=== PATIENT | female | born 1960 | race Two or more races ===

== ENCOUNTER 2020-12-05 15:05 | Emergency (ER) | payer OTHER ==
[~2020-12-05] VITALS: Ht 165.1 cm; Wt 68.0 kg
[2020-12-05] MEDS ORDERED: SODIUM CHLORIDE 0.9% 1,000 ML IV ONE (15:45)
[2020-12-05 16:05] LABS: Basophils # (auto) 0 10 ^3/uL (0-0.2); Basophils % (auto) 0.4 % (0.0-2.0); Eosinophils # (auto) 0.1 10 ^3/uL (0-0.8); Eosinophils % (auto) 0.5 % (0.0-7.0); Hematocrit 40.2 % (36.0-46.0); Hemoglobin 13.9 g/dL (12.2-16.2); Lymphocytes % (auto) 7.5 % (10.0-50.0); Mean Corpuscular Hemoglobin 32.3 pg (28.0-32.0); Mean Corpuscular Hgb Conc. 34.6 g/dL (32.0-36.0); Mean Corpuscular Volume 93.3 fL (80.0-100.0); Monocytes # (auto) 0.7 10 ^3/uL (0-1.3); Monocytes % (auto) 5.5 % (0.0-12.0); Neutrophils % (auto) 86.1 % (37.0-80.0); Nucleated Red Blood Cells % 0.1 %; Red Blood Cells 4.31 10^6/uL (4.0-5.20); Red Cell Distribution Width 13.1 % (11.8-14.3); White Blood Cell 12.8 10^3/uL (4.4-10.8)
[2020-12-05 16:14] LABS: Albumin 3.1 g/dL (3.4-5.0); Magnesium 2.4 mg/dL (1.6-2.6); Potassium 3.8 mmol/L (3.5-5.1)
[2020-12-05 16:18] LABS: BUN/Creatinine Ratio 20.4; Bilirubin, Total 1.4 mg/dL (0.2-1.0); Total Protein 7.6 g/dL (6.4-8.2)
[2020-12-05 19:25] LABS: Urine Bacteria NONE SEEN /hpf (None Seen); Urine Blood 2+ /uL (Negative); Urine Specific Gravity 1.016 (1.001-1.035); Urine WBC 39 /hpf (0 - 5)
[2020-12-05 19:45] LABS: Alcohol, Urine < 3.0 mg/dL (0-10); Amphetamine Screen, Urine NEGATIVE (NEGATIVE); Barbiturate Scree,Urine NEGATIVE (NEGATIVE); Benzodiazephine Screen, Urine NEGATIVE (NEGATIVE); Cannabinoid Screen, Urine NEGATIVE (NEGATIVE); Cocaine Screen, Urine NEGATIVE (NEGATIVE); Opiate Scree,Urine NEGATIVE (NEGATIVE); Phencyclidine Screen, Urine NEGATIVE (NEGATIVE)
[2020-12-05] MEDS ORDERED: cefTRIAXone 1GM/50ML D5W 50 ML IV ONE (20:00)
[2020-12-05] MEDS ORDERED: ACETAMINOPHEN 500 MG TAB PO ONE (20:00)
[2020-12-05 20:56] LABS: INR 0.96 (0.9-1.15); Partial Thromboplastin Time 30.2 sec (23.0-31.2)
[2020-12-05] MEDS ORDERED: IOHEXOL 350 MG/ML 100ML IJ ONE ×2 (21:39→22:19)
[2020-12-06] VITALS: BP 122/82
== END 2020-12-06 00:51 | disposition home or self-care (01) ==
LOC: ER 15:05
DX: I10 Essential (primary) hypertension (principal); R74.8 Abnormal levels of other serum enzymes; R06.00 Dyspnea, unspecified; Z90.710 Acquired absence of both cervix and uterus; Z20.822 Contact with and (suspected) exposure to COVID-19
CPT/HCPCS: 36415; 71045; 71275; 76705; 80053; 80307; 80320; 81001; 83605; 83735; 83880; 84443; 84484; 85025; 85379; 85610; 85730; 87426; 93005; 96361; 96365; 99285; C9803; J0696; J7030; Q9967; U0003

== ENCOUNTER 2023-11-30 01:23 | Emergency (ER) | payer BC ==
[~2023-11-30] VITALS: Ht 165.1 cm; Wt 71.4 kg
[2023-11-30 02:23] LABS: Basophils # (auto) 0 10 ^3/uL (0-0.2); Basophils % (auto) 0.3 % (0.0-2.0); Eosinophils # (auto) 0.1 10 ^3/uL (0-0.8); Eosinophils % (auto) 0.6 % (0.0-7.0); Hemoglobin 13.9 g/dL (12.2-16.2); Lymphocytes # (auto) 1.2 10 ^3/uL (0.4-5.4); Lymphocytes % (auto) 9.9 % (10.0-50.0); Mean Corpuscular Hemoglobin 31.2 pg (28.0-32.0); Mean Corpuscular Volume 94.3 fL (80.0-100.0); Monocytes # (auto) 0.6 10 ^3/uL (0-1.3); Monocytes % (auto) 5.1 % (0.0-12.0); Neutrophils # (auto) 10.3 10 ^3/uL (1.6-8.6); Neutrophils % (auto) 84.1 % (37.0-80.0); Red Blood Cells 4.45 10^6/uL (4.0-5.20); White Blood Cell 12.3 10^3/uL (4.4-10.8)
[2023-11-30 02:26] LABS: Chloride 101 mmol/L (98-107); Potassium 3.6 mmol/L (3.5-5.1); Sodium 133 mmol/L (136-145)
[2023-11-30 02:27] LABS: Anion Gap 10 (5-15); Calcium 9.5 mg/dL (8.7-10.4); Carbon Dioxide 22 mmol/L (20-30)
[2023-11-30 02:32] LABS: BUN/Creatinine Ratio 18.1 (10.0-20.0); Blood Urea Nitrogen 17 mg/dL (9-23); Glucose 102 mg/dL (74-106)
[2023-11-30 02:34] LABS: Urine Bacteria FEW /hpf (None Seen); Urine Blood 2+ /uL (Negative); Urine Clarity Clear (Clear); Urine Color Colorless (Yellow); Urine Protein, UAD Negative (Negative); Urine Specific Gravity 1.003 (1.001-1.035); Urine Urobilinogen Normal (Negative); Urine WBC 1 /hpf (0 - 5); Urine pH 5.5 (5.0-8.0)
[2023-11-30] MEDS ORDERED: TAMS-35 PO (06:44)
[2023-11-30 07:51] VITALS: BP 166/108; PULSE 80; RESP 18; TEMP 97.2; O2SAT 98
== END 2023-11-30 07:51 | disposition home or self-care (01) ==
LOC: ER 01:23
DX: R33.9 Retention of urine, unspecified (principal); R10.9 Unspecified abdominal pain; I10 Essential (primary) hypertension; Z98.890 Other specified postprocedural states; Z79.899 Other long term (current) drug therapy
CPT/HCPCS: 36415; 51702; 74176; 80048; 81001; 85025

== ENCOUNTER 2025-09-09 15:59 | Inpatient (IN) | payer BC, MEDICARE ==
[~2025-09-09] VITALS: Ht 165.1 cm; Wt 74.6 kg
[~2025-09-09 15:59] MED LIST: TAMS-35 PO
--- NOTE | 2025-09-09 16:15 | ECG ---
[facility] Test Date: 2025-09-09 Test Time: 16:09:32 Pat Name: MIKEY ABARCA Department: ED Room: Gender: F Category Planner: maren : 1960 Requested By: INDRA RUSSELL Order Number: [id number] Reading MD: Measurements Intervals [place] Rate: 75 P: 63 AR: 167 QRS: 49 QRSD: 100 T: 29 QT: 405 QTc: 453 Interpretive Statements Sinus rhythm Abnormal R-wave progression, early transition Baseline wander in lead(s) II,III,aVF Please click the below link to view image of tracing.
[2025-09-09 17:08] LABS: Urine Protein, UAD Negative (Negative)
--- NOTE | 2025-09-09 17:19 | ED.PDOC ---
HPI Comments 65 y.o female with a chief complaint of substernal chest pain and lightheadedness that started today. Patient reports that pain has been constant, nonradiating, sharp, and has no alleviating factors. Patient states that she has had this pain many years ago however we self resolved and has not seek medical attention for this or has she had a cardiac evaluation done. Patient has a history of hypotension. She denies any substance, tobacco, or alcohol use Chief Complaint: Chest Pain Time Seen by MD: 17:00 Primary Care Provider: ALEXANDRO Osorio Notes: Nurses Notes, Medications, Allergies Allergies: Coded Allergies: NO KNOWN ALLERGIES (Unverified , 05/17/24) Home Meds Active Scripts Tamsulosin Hcl (Flomax) 0.4 Mg Cap, 1 CAP PO DAILY, #30 CAP 11 Refills Prov:LATISHA ZULETA MD 11/30/23 Information Source: Patient Mode of Arrival: Ambulatory Severity: Moderate Timing: Hours Duration: Since onset Location: Substernal Radiation: No Radiation Quality: Sharp Onset: At Rest Cardiac Risk Factors: HTN PE Risk Factors: None History of: Similar pain in past Modifying Factors: Nothing Associated Signs and Symptoms: Other Past Medical History PAST MEDICAL HISTORY: HTN Surgical History: Cholecystectomy, Hysterectomy HEADING UP MACHINE OPERATOR History: No Pertinent HEADING UP MACHINE OPERATOR History Family History Family History: Family hx of HTN Social History Smoker: Non-Smoker Alcohol: Occasionally Drugs: Denies Drug Use Lives In: Home Constitutional: denies: chills, diaphoresis, fatigue, fever, malaise, sweats, w eakness, others EENTM: denies: blurred vision, double vision, ear bleeding, ear discharge, ear drainage, ear pain, ear ringing, eye pain, eye redness, hearing loss, mouth pain, mouth swelling, nasal discharge, nose bleeding, nose congestion, nose pain, photophobia, tearing, throat pain, throat swelling, voice changes, others Respiratory: denies: cough, hemoptysis, orthopnea, SOB at rest, shortness of breath, SOB with excertion, stridor, wheezing, others Cardiovascular: reports: chest pain, lightheadedness; denies: dizzy spells, diaphoresis, Dyspnea on exertion, edema, irregular heart beat, left arm pain, palpitations, PND, syncope, others Gastrointestinal: denies: abdomen distended, abdominal pain, blood streaked bowels, constipated, diarrhea, dysphagia, difficulty swallowing, hematemesis, melena, nausea, poor appetite, poor fluid intake, rectal bleeding, rectal pain, vomiting, others Genitourinary: denies: abnormal vagina bleeding, burning, dyspareunia, dysuria, flank pain, frequency, hematuria, incontinence, pain, , vagina discharge, urgency, others Neurological: denies: dizziness, fainting, headache, left sided numbness, left sided weakness, numbness, paresthesia, pre-existing deficit, right sided numbne ss, right sided weakness, seizure, speech problems, tingling, tremors, weakness, others Musculoskeletal: denies: back pain, gout, joint pain, joint swelling, muscle pain, muscle stiffness, neck pain, others Integumetry: denies: bruises, change in color, change in hair/nails, dryness, laceration, lesions, lumps, rash, wounds, others Allergic/Immunocompromised: denies: Difficulty Healing, Frequent Infections, Hives, Itching, others Hematologic/Lymphatic: denies: anemia, blood clots, easy bleeding, easy bruising, swollen glands, others Endocrine: denies: excessive hunger, excessive sweating, excessive thirst, excessive urination, flushing, intolerance to cold, intolerance to heat, unexplained weight gain, unexplained weight loss, others Psychiatric: denies: anxiety, bipolar disorder, depression, hopeless, panic disorder, schizophrenia, sleepless, suicidal, others All Other Systems: Reviewed and Negative Physical Exam General Appearance: Moderate Distress HEENT: Normal ENT Inspection, Pharynx Normal, TMs Normal Neck: Full Range of Motion, Non-Tender, Normal, Normal Inspection Respiratory: Chest Non-Tender, Lungs Clear, No Accessory Muscle Use, No Respiratory Distress, Normal Breath Sounds Cardiovascular: No Edema, No JVD, No Murmur, No Gallop, Normal Peripheral Pulses, Regular Rate/Rhythm Breast Exam: Deferred Gastrointestinal: No Organomegaly, Non Tender, No Pulsatile Mass, Normal Bowel Sounds, Soft Genitalia: Deferred Pelvic: Deferred Rectal: Deferred Extremities: No calf tenderness, Normal range of motion, Non-tender, No pedal edema Musculoskeletal : Apperance: Normal Neurologic: Alert, ram press operator II-XII nml as Tested, No Motor Deficits, Normal Affect, Normal Mood, No Sensory Deficits Cerebellar Function: NOT DONE Reflexes: NOT DONE Skin: Dry, Normal Color, Warm Peripheral Pulses: 3+ Radial (R), 3+ Radial (L) Lymphatic: No Adenopathy Was a procedure done? Was a procedure done?: No CP Differential Dx Differential Diagnosis: A-fib, A-Flutter, Angina, Anxiety / Panic Attack, Atrial Dysrhythmia, Electrolyte Disorder, N/A Differential Diagnosis: Angina, Chest Wall Pain, Cholelithiasis, Costochondritis, Esophageal reflux/spasm, Pericarditis, Pneumothorax X-Ray, Labs, Meds, VS Vital Signs Date Time Temp Pulse Resp B/P (MAP) Pulse Ox O2 Delivery O2 Flow Rate FiO2 09/09/25 16:09 75 09/09/25 16:00 97.4 65 18 180/119 99 97.4 Lab Test 09/09/25 17:14 09/09/25 16:53 Range/Units White Blood Count 7.3 4.4-10.8 10^3/uL Red Blood Count 4.53 4.0-5.20 10^6/uL Hemoglobin 14.3 12.2-16.2 g/dL Hematocrit 42.7 36.0-46.0 % Mean Corpuscular Volume 94.2 80.0-100.0 fL Mean Corpuscular Hemoglobin 31.5 28.0-32.0 pg Mean Corpuscular Hemoglobin Concent 33.5 32.0-36.0 g/dL Red Cell Distribution Width 13.0 11.8-14.3 % Platelet Count 308 140-450 10^3/uL Mean Platelet Volume 7.4 6.9-10.8 fL Neutrophils (%) (Auto) 55.9 37.0-80.0 % Lymphocytes (%) (Auto) 33.5 10.0-50.0 % Monocytes (%) (Auto) 6.2 0.0-12.0 % Eosinophils (%) (Auto) 3.8 0.0-7.0 % Basophils (%) (Auto) 0.6 0.0-2.0 % Neutrophils # (Auto) 4.1 1.6-8.6 10 ^3/uL Lymphocytes # (Auto) 2.5 0.4-5.4 10 ^3/uL Monocytes # (Auto) 0.5 0-1.3 10 ^3/uL Eosinophils # (Auto) 0.3 0-0.8 10 ^3/uL Basophils # (Auto) 0 0-0.2 10 ^3/uL Nucleated Red Blood Cells 0.1 % Sodium Level Pending Potassium Level Pending Chloride Level Pending Carbon Dioxide Level Pending Anion Gap Pending Blood Urea Nitrogen Pending Creatinine Pending Glomerular Filtration Rate Calc Pending BUN/Creatinine Ratio Pending Serum Glucose Pending Calcium Level Pending Troponin I High Sensitivity Pending Urine Color Light-yellow Yellow Urine Clarity Clear Clear Urine pH 6.5 5.0-9.0 Urine Specific [place] 1.013 1.001-1.035 Urine Protein Negative Negative Urine Ketones Negative Negative Urine Blood Negative Negative /uL Urine Nitrite Negative Negative Urine Bilirubin Negative Negative Urine Urobilinogen Normal Negative mg/dL Urine Leukocyte Esterase Negative Negative /uL Urine RBC None seen 0 - 4 /hpf Urine Microscopic WBC 1 0-5 /HPF Urine Squamous Epithelial Cells Few <5 /hpf Urine Bacteria None seen None Seen /hpf Urine Glucose Normal Normal mg/dL Patient alert. Complaining of chest pain. Vitals stable. Answering questions. Continues to have chest pain. Has risk factors for coronary artery disease. EKG reviewed does not show any acute changes. Was given aspirin. Was given nitro. Explained to the patient she will be admitted for further workup. Continue monitoring. Time of 1ST Reevaluation: 17:19 Reevaluation 1ST: Unchanged Patient Education/Counseling: Diagnosis, Treatment, Prognosis Family Education/Counseling: No Family Present SEPSIS Sepsis Screen Date sepsis recognized/suspect: Sep 09, 2025 Time Sepsis recognized/suspect: 1601 Recent Procedure: No On Antibiotic Therapy: No Respiratory Rate >20: No Heart Rate >90: No Temp<36 C (96.8 F) or >38.3 C: No SBP <90 or MAP <65 mmHG: No New Acute Mental Status Change: No Is the patient on CPAP, BIPAP,: No Physician Orders Troponin-I Hs (09/09/25 16:58) Chest Portable (09/09/25 16:58) Basic Metabolic Panel (09/09/25 16:58) Troponin-I Hs (09/09/25 17:58) Troponin-I Hs (09/09/25 19:58) Vital Signs Date Time Temp Pulse Resp B/P (MAP) Pulse Ox O2 Delivery O2 Flow Rate FiO2 09/09/25 16:09 75 09/09/25 16:00 97.4 65 18 180/119 99 97.4 Laboratory Tests Test 09/09/25 17:14 White Blood Count 7.3 10^3/uL (4.4-10.8) Departure 1 Departure Time of Disposition: 17:32 Impression: Primary Impression: Chest pain of unknown etiology Disposition: ADMITTED INPATIENT Admit to: Med Surg Condition: Guarded Critical Care Note Critical Care Time?: No Stability Stability form required: No Heart Score Heart Score: Heart Score Response (Comments) Value History Slightly Suspicious 0 EKG Normal 0 Age >65 2 Risk Factors 1 or 2 risk factors 1 Troponin Normal limit 0 Total 3 I personally scribed for INDRA RUSSELL MD ([email or web address]) on 09/09/25 at 17:19. Electronically submitted by Lu iTpton ([facility]). INDRA RUSSELL MD Sep 09, 2025 17:19
[2025-09-09 17:28] LABS: Hematocrit 42.7 % (36.0-46.0); Hemoglobin 14.3 g/dL (12.2-16.2); Mean Corpuscular Hemoglobin 31.5 pg (28.0-32.0); Mean Corpuscular Volume 94.2 fL (80.0-100.0); Nucleated Red Blood Cells % 0.1 %
--- NOTE | 2025-09-09 17:38 | DVH ---
CHEST RADIOGRAPH REASON FOR EXAM: Shortness of breath COMPARISON: XR CHEST 1 VIEW on DOS: 01/09/25, XR CHEST 2 VIEWS on DOS: 07/30/23, CHEST PORTABLE on DOS: 12/05/20 TECHNIQUE: One view of the chest is provided FINDINGS: The cardiomediastinal silhouette is within normal limits for technique. There is no focal airspace disease. There is no significant pleural effusion. No acute bony abnormality is identified. IMPRESSION: No radiographic evidence of acute cardiopulmonary process.
[2025-09-09 17:39] LABS: Chloride 107 mmol/L (98-107); Potassium 4.0 mmol/L (3.5-5.1); Sodium 141 mmol/L (136-145)
[2025-09-09 17:40] LABS: Anion Gap 9 (5-15); Calcium 9.7 mg/dL (8.7-10.4); Carbon Dioxide 25 mmol/L (20-31)
[2025-09-09 17:45] LABS: BUN/Creatinine Ratio 14.6 (10.0-20.0); Blood Urea Nitrogen 14 mg/dL (9-23); Glucose 90 mg/dL (74-106)
[2025-09-09] MEDS ORDERED: HYDROcodone-ACET 5/325MG TAB PO PRN (20:30)
[2025-09-09] MEDS ORDERED: ONDANSETRON HCL 4 MG/2 ML VIAL IV PRN (20:30)
[2025-09-09] MEDS ORDERED: DOCUSATE SOD 100 MG CAP PO PRN (20:30)
[2025-09-09] MEDS ORDERED: hydrALAZINE HCL 20 MG/ML VL IV PRN (20:30)
--- NOTE | 2025-09-09 21:35 | DVHHP2 ---
History of Present Illness Reason for Visit: Chest pain of unknown etiology History of Present Illness The patient is a 65-year-old female with past medical history of hypertension who presented to [facility] ED with complaint of chest pain. Patient reports that she has been experiencing substernal chest pain, constant, nonradiating, sharp in nature, associated with lightheadedness, getting worse that prompted this visit. Patient was seen and evaluated in the ED, laboratory data shows WBC 7.3, platelets 308, sodium 141, potassium 4.0, BUN 14, creatinine 0.96, glucose 90, calcium 9.7, troponin nine, blood pressure 180/119 trending down to 131/82, heart rate 66, temperature 98.0 F, O2 saturation 99% on room air. Chest x-ray show no evidence of acute cardiopulmonary process. On my assessment, patient denied chest pain at this moment, no headache, dizziness, diaphoresis, shortness of breaths, no diarrhea, nausea, vomiting, fever, no chills. Patient was admitted for further evaluation and medical management. Past Medical History HTN Past Surgical History Cholecystectomy, Hysterectomy Family History Reviewed, noncontributory to the management of this case. Past Social History The patient lives at home, denies smoking, alcohol or illicit drugs abuse. Review of Systems Constitutional: Yes: Weakness; No: Fever, Chills, Sweats, Malaise, Other Eyes: No: Pain, Vision change, Conjunctivae inflammation, Eyelid inflammation, Other, Redness ENT: No: Ear pain, Ear discharge, Nose pain, Nose discharge, Nose congestion, Mouth pain, Mouth swelling, Throat pain, Throat swelling, Other Respiratory: No: Cough, Dry, Shortness of breath, SOB with excertion, Wheezing, Hemoptysis, Pleuritic Pain, Sputum, Wheezing, Other Cardiovascular: Chest Pain, Lt Headedness; No: Palpitations, Orthopnea, Paroxysmal Noc. Dyspnea, Edema, Other Gastrointestinal: No: Nausea, Vomiting, Abdominal Pain, Diarrhea, Constipation, Melena, Hematochezia, Other Genitourinary: No Dysuria, No Frequency, No Incontinence, No Hematuria, No Retention, No Other Musculoskeletal: No: other, neck pain, shoulder pain, arm pain, back pain, hand pain, leg pain, foot pain Skin: No: Rash, Lesions, Jaundice, Bruising, Other Neurological: No: Weakness, Numbness, Incoordination, Change in speech, Confusion, Seizures, Other Allergies: Coded Allergies: NO KNOWN ALLERGIES (Unverified , 05/17/24) Exam Vital Signs Vital Signs Date Time Temp Pulse Resp B/P (MAP) Pulse Ox O2 Delivery O2 Flow Rate FiO2 09/09/25 20:42 97.4 67 12 131/87 (102) 95 97.4 09/09/25 18:31 Room Air General Appearance: Alert, Oriented X3, Cooperative, No acute distress HEENT: Atraumatic, PERRLA, EOMI, Mucous membr. moist/pink Respiratory: Normal air movement Cardiovascular: Regular rate, Normal S1, Normal S2, No murmurs Abdominal: Normal bowel sounds, Soft, No tenderness, No hepatospenomegaly, No masses Extremities: No clubbing, No cyanosis, No edema, Normal pulses, No tenderness/swelling Skin: No rashes, No breakdown, No significant lesion Neuro: Normal speech, Normal tone, Sensation intact, Cranial nerves 3-12 NL, Reflexes 2+, Other (Generalized weakness) Psych/Mental Status: Mental status NL, Mood NL Labs/Xrays Labs Test 09/09/25 20:30 09/09/25 17:14 09/09/25 16:53 Range/Units Troponin I High Sensitivity 9 </=34 ng/L White Blood Count 7.3 4.4-10.8 10^3/uL Red Blood Count 4.53 4.0-5.20 10^6/uL Hemoglobin 14.3 12.2-16.2 g/dL Hematocrit 42.7 36.0-46.0 % Mean Corpuscular Volume 94.2 80.0-100.0 fL Mean Corpuscular Hemoglobin 31.5 28.0-32.0 pg Mean Corpuscular Hemoglobin Concent 33.5 32.0-36.0 g/dL Red Cell Distribution Width 13.0 11.8-14.3 % Platelet Count 308 140-450 10^3/uL Mean Platelet Volume 7.4 6.9-10.8 fL Neutrophils (%) (Auto) 55.9 37.0-80.0 % Lymphocytes (%) (Auto) 33.5 10.0-50.0 % Monocytes (%) (Auto) 6.2 0.0-12.0 % Eosinophils (%) (Auto) 3.8 0.0-7.0 % Basophils (%) (Auto) 0.6 0.0-2.0 % Neutrophils # (Auto) 4.1 1.6-8.6 10 ^3/uL Lymphocytes # (Auto) 2.5 0.4-5.4 10 ^3/uL Monocytes # (Auto) 0.5 0-1.3 10 ^3/uL Eosinophils # (Auto) 0.3 0-0.8 10 ^3/uL Basophils # (Auto) 0 0-0.2 10 ^3/uL Nucleated Red Blood Cells 0.1 % Sodium Level 141 136-145 mmol/L Potassium Level 4.0 3.5-5.1 mmol/L Chloride Level 107 98-107 mmol/L Carbon Dioxide Level 25 20-31 mmol/L Anion Gap 9 5-15 Blood Urea Nitrogen 14 9-23 mg/dL Creatinine 0.96 0.550-1.02 mg/dL Glomerular Filtration Rate Calc 65 >90 mL/min BUN/Creatinine Ratio 14.6 10.0-20.0 Serum Glucose 90 74-106 mg/dL Calcium Level 9.7 8.7-10.4 mg/dL Urine Color Light-yellow Yellow Urine Clarity Clear Clear Urine pH 6.5 5.0-9.0 Urine Specific [place] 1.013 1.001-1.035 Urine Protein Negative Negative Urine Ketones Negative Negative Urine Blood Negative Negative /uL Urine Nitrite Negative Negative Urine Bilirubin Negative Negative Urine Urobilinogen Normal Negative mg/dL Urine Leukocyte Esterase Negative Negative /uL Urine RBC None seen 0 - 4 /hpf Urine Microscopic WBC 1 0-5 /HPF Urine Squamous Epithelial Cells Few <5 /hpf Urine Bacteria None seen None Seen /hpf Urine Glucose Normal Normal mg/dL PATIENT: MIKEY ABARCA ACCT: [id number] UNIT: [id number] : 1960 LOC: ER ROOM / BED: / AGE / SEX: 65 / F ADM STATUS: REG ER SERVICE 57 ORDERING PHYSICIAN: INDRA RUSSELL MD PROCEDURE(s): CXRP - CHEST PORTABLE REASON: sob ORDER NUMBER(s): [id number], ACCESSION NUMBER(s): [id number] CHEST RADIOGRAPH REASON FOR EXAM: Shortness of breath COMPARISON: XR CHEST 1 VIEW on DOS: 01/09/25, XR CHEST 2 VIEWS on DOS: 07/30/23, CHEST PORTABLE on DOS: 12/05/20 TECHNIQUE: One view of the chest is provided FINDINGS: The cardiomediastinal silhouette is within normal limits for technique. There is no focal airspace disease. There is no significant pleural effusion. No acute bony abnormality is identified. IMPRESSION: No radiographic evidence of acute cardiopulmonary process. SEPSIS Sepsis Screen Date sepsis recognized/suspect: Sep 09, 2025 Time Sepsis recognized/suspect: 160 Recent Procedure: No On Antibiotic Therapy: No Respiratory Rate >20: No Heart Rate >90: No Temp<36 C (96.8 F) or >38.3 C: No SBP <90 or MAP <65 mmHG: No New Acute Mental Status Change: No Is the patient on CPAP, BIPAP,: No Physician Orders Chest Portable (09/09/25 16:58) Code Status (09/09/25 20:24) Oxygen Per Hour (09/09/25 20:24) Admit (09/09/25 21:32) Nitroglycerin Sublingual (Ntrostat Subli (09/09/25 21:45) Morphine Sulfate Injection (09/09/25 21:45) Stat Ekg For Chest Pain (09/09/25 21:32) Notify Md Of Changes From Base (09/09/25 21:32) Bondactor Machine Operator For 24 Hours (09/09/25 21:32) Emergency Dysrhythmia Protocol (09/09/25 21:32) Rhythm Strips Once Every Shift (09/09/25 21:32) Oxygen By Nasal Cannula (09/09/25 21:32) Vital Signs Date Time Temp Pulse Resp B/P (MAP) Pulse Ox O2 Delivery O2 Flow Rate FiO2 09/09/25 20:42 97.4 67 12 131/87 (102) 95 97.4 09/09/25 18:40 175/110 09/09/25 18:40 176/110 09/09/25 18:31 98.0 66 14 176/110 (132) 100 98.0 09/09/25 18:31 66 14 100 Room Air 09/09/25 17:49 98.2 68 20 165/112 (129) 97 98.2 09/09/25 16:09 75 09/09/25 16:00 97.4 65 18 180/119 99 97.4 Laboratory Tests Test 09/09/25 17:14 White Blood Count 7.3 10^3/uL (4.4-10.8) Medications Medications Dose Ordered Sig/Grace Route Start Time Stop Time Status Last Admin Dose Admin Clonidine HCl 0.2 mg ONCE ONCE PO 09/09/25 18:00 09/09/25 18:01 DC 09/09/25 18:40 0.2 MG Assessment/Plan Assessment/Plan Chest pain of unknown etiology Hypertensive urgency Generalized weakness Plan 1. Admit to telemetry unit 2. Breathing treatment 3. Pain control management 4. Management of fluids and electrolytes 5. Consultation for hospitalist 6. Diagnostic tests chest x-ray 7. DVT prophylaxis-on SCDs 8. Repeat labs CBC, CMP in a.m. 9. Continue with current medical management 10. Treatment plan discussed with patient and RN. Patient verbalized understanding. Plan discussed with: Patient, Other (RN) My Orders Orders - NITHIN NEGRON DNP Procedure Category Date Status Time Code Status CODE 09/09/25 Transmitted 20:24 Oxygen Per Hour RT 09/09/25 Transmitted 20:24 Admit ADMIT 09/09/25 Transmitted 21:32 Nitroglycerin PHA 09/09/25 Transmitted Sublingual (Ntrostat 21:45 Morphine Sulfate PHA 09/09/25 Transmitted Injection 21:45 Stat Ekg For Chest MILDRED 09/09/25 Transmitted Pain 21:32 Notify Md Of Changes MILDRED 09/09/25 Transmitted From Base 21:32 Bondactor Machine Operator For MILDRED 09/09/25 Transmitted 24 Hours 21:32 Emergency Dysrhythmia MILDRED 09/09/25 Transmitted Protocol 21:32 Rhythm Strips Once MILDRED 09/09/25 Transmitted Every Shift 21:32 Oxygen By Nasal RT 09/09/25 Transmitted Cannula 21:32 Problem List: (1) Chest pain of unknown etiology (2) Hypertensive urgency (3) Generalized weakness Date of Service: Sep 09, 2025 Billing Provider: NITHIN NEGRON DNP Common Visit Codes: [id number] INP/OBS CARE (HIGH) NITHIN NEGRON DNP Sep 09, 2025 21:35
[2025-09-09] MEDS ORDERED: MORPHINE SULFATE INJ 2 MG/ml SYRG IV PRN (21:45)
[2025-09-09] MEDS ORDERED: NITROGLYCERIN 0.4 MG SL TAB SL PRN (21:45)
[2025-09-09] MEDS: SODIUM CHLOR 0.9% PF (SALINE LOCK) 10ML VIAL/SYR IV SCH (22:00)
[2025-09-10] VITALS (9 sets, daily range): BP systolic 112–133; BP diastolic 73–91; PULSE 54–76; RESP 16–18; TEMP 97.6–98.1; O2SAT 95–100
[2025-09-10] MEDS: LISINOPRIL 5 MG TAB PO SCH (10:28)
--- NOTE | 2025-09-10 16:19 | DVHPN2 ---
Subjective Patient denies any chest pain at this time Reviewed: Care Plan, H&P, Labs, Medications Changes from previous H/P or p: No Changes General: Per HPI Eyes: No Pain, No Vision change, No Conjunctivae inflammation, No Eyelid inflammation, No Other, No Redness ENT: No Ear pain, No Ear discharge, No Nose pain, No Nose discharge, No Nose congestion, No Mouth pain, No Mouth swelling, No Throat pain, No Throat swelling, No Other Cardiovascular: Chest Pain; No Palpitations, No Orthopnea, No Paroxysmal Noc. Dyspnea, No Edema; Lt Headedness; No Other Respiratory: No Cough, No Dry, No Shortness of breath, No SOB with excertion, No Wheezing, No Hemoptysis, No Pleuritic Pain, No Sputum, No Other Gastrointestinal: No Nausea, No Vomiting, No Abdominal Pain, No Diarrhea, No Constipation, No Melena, No Hematochezia, No Other Genitourinary: No Dysuria, No Frequency, No Incontinence, No Hematuria, No Retention, No Other Musculoskeletal: No other, No neck pain, No shoulder pain, No arm pain, No back pain, No hand pain, No leg pain, No foot pain Skin: No Rash, No Lesions, No Jaundice, No Bruising, No Other Objective Vitals Vital Signs Date Time Temp Pulse Resp B/P (MAP) Pulse Ox O2 Delivery O2 Flow Rate FiO2 09/10/25 13:00 97.9 76 17 112/78 (89) 95 97.9 09/10/25 00:54 Room Air* 0 21 Intake/Output Intake and Output 09/10/25 06:59 Intake Total 0 ml Balance 0 ml Intake Oral 0 ml # Voids 2 General Appearance: Alert, Oriented X3, Cooperative, No acute distress HEENT: Atraumatic, PERRLA Lungs: Clear to auscultation, Normal air movement Cardiovascular: Normal S1, Normal S2 Abdomen: Normal bowel sounds, Soft, No tenderness, No hepatospenomegaly, No masses Genitourinary: No Apparent Abnormalities Musculoskeletal: Normal sensory function, Normal motor function Extremities: No clubbing, No cyanosis, No edema, Normal pulses, No tenderness/swelling Neuro: Normal gait, Normal speech Skin: Dry, Intact Psych/Mental Status: Mental status NL, Mood NL Medications Current Medications Medications Dose Ordered Sig/Grace Route Start Time Stop Time Status Last Admin Dose Admin Amlodipine Besylate 10 mg DAILY PO 09/10/25 10:00 09/10/25 10:28 10 MG Lisinopril 10 mg DAILY PO 09/10/25 10:00 09/10/25 10:28 10 MG Hydralazine HCl 10 mg Q6HP PRN IV 09/09/25 20:30 Sodium Chloride 10 ml Q8HR IV 09/09/25 22:00 09/10/25 15:52 10 ML Acetaminophen/ Hydrocodone Bitart 1 tab Q4HP PRN PO 09/09/25 20:30 Ondansetron HCl 4 mg Q4HP PRN IV 09/09/25 20:30 Docusate Sodium 100 mg BIDPRN PRN PO 09/09/25 20:30 Acetaminophen 650 mg Q6HP PRN PO 09/09/25 20:30 Nitroglycerin 0.4 mg Q5MINP PRN SL 09/09/25 21:45 Morphine Sulfate 2 mg Q30M PRN IV 09/09/25 21:45 Laboratory Results Laboratory Tests 09/09/25 17:14 Chemistry Test 09/09/25 17:14 Calcium Level 9.7 mg/dL (8.7-10.4) Urinalysis Test 09/09/25 16:53 Urine Color Light-yellow (Yellow) Urine Clarity Clear (Clear) Urine pH 6.5 (5.0-9.0) Urine Specific [place] 1.013 (1.001-1.035) Urine Protein Negative (Negative) Urine Ketones Negative (Negative) Urine Blood Negative /uL (Negative) Urine Nitrite Negative (Negative) Urine Bilirubin Negative (Negative) Urine Urobilinogen Normal mg/dL (Negative) Urine Leukocyte Esterase Negative /uL (Negative) Urine RBC None seen /hpf (0 - 4) Urine Microscopic WBC 1 /HPF (0-5) Urine Squamous Epithelial Cells Few /hpf (<5) Urine Bacteria None seen /hpf (None Seen) Urine Glucose Normal mg/dL (Normal) Labs and/or images reviewed: Labs reviewed by me, Image(s) reviewed by me Assessment/Plan Assessment/Plan Impression: -chest pain, rule out ACS -rule out pulmonary embolism -hypertensive crisis -primary hypertension Plan: -discussion made with the patient regarding plan of care. At this time she wishes to proceed with CT angiogram of the chest as well as cardiology consultation. -EKG reviewed, no ST changes noted -troponins negative x3 -CT angiogram of the chest -echocardiogram -cardiology consultation with Dr. Moore Total time spent with patient discussing and formulating plan of care: 35 minutes. This medical document was created using an electronic medical record system with [employer] system. Although this document has been carefully reviewed, there may still be some phonetic and typographical errors. These areas are purely typographical due to imperfections of the software programs, and do not reflect any compromise in the patient's medical care. Plan discussed with: Patient, Other (RN) My Orders Orders - DIOGO BENAVIDES NP Procedure Category Date Status Time Ct Angio Chest CT 09/10/25 Logged Contrast 16:14 * Cardiothoracic CONS 09/10/25 Transmitted Consult Echo 2d Mode Cardiac US 09/10/25 Transmitted DOP 16:17 Date of Service: Sep 10, 2025 Billing Provider: DIOGO BENAVIDES NP Common Visit Codes: [id number] INP/OBS CARE(HIGH) DIOGO BENAVIDES NP Sep 10, 2025 16:19
[2025-09-10] MEDS: ACETAMINOPHEN 325 MG TAB PO PRN (17:20)
[2025-09-10] MEDS ORDERED: IOHEXOL 350 MG/ML 100ML IJ ONE (17:24)
--- NOTE | 2025-09-10 18:22 | DVH ---
CLINICAL HISTORY: Chest pain, Rule out PE. 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 3D MIP reconstructed images were created and archived on the PACS system. This exam was performed according to our departmental dose optimization program. Up-to-date CT equipment and radiation dose reduction techniques are utilized as appropriate. CTDIvol: 7 mGy; DLP: 183 mGy-cm. COMPARISON: XY CHEST PORTABLE on DOS: 09/09/25. FINDINGS: Pulmonary arteries: No evidence of an acute pulmonary embolism. Main pulmonary artery measures 4.2 cm in diameter, which is consistent with pulmonary hypertension. Heart and great vessels: No cardiomegaly. Minimal calcific atherosclerosis of the aortic arch. No evidence of a thoracic aortic aneurysm. Pericardium: No pericardial effusion. Lymph nodes: Unremarkable. Airways: Patent trachea and airways. No bronchial wall thickening. Lungs: Minimal dependent subsegmental atelectasis of the lung bases. Otherwise, lungs are clear. No mass, consolidation, or pulmonary edema. No suspicious pulmonary nodule. Pleura: No pleural effusion or pneumothorax. Thyroid gland: Left thyroid lobe with a subcentimeter hypodense nodule, which does not necessitate imaging follow-up. Esophagus: Unremarkable. Soft tissues: Unremarkable. Bones: No acute or suspicious osseous abnormality. Moderate degenerative changes of the thoracic spine. Osseous structures are demineralized. Upper abdomen: Surgically absent gallbladder. IMPRESSION: 1. Negative for an acute pulmonary embolism. 2. Pulmonary hypertension.
[2025-09-11 01:00] VITALS: BP 143/93; PULSE 62; RESP 16; TEMP 97.8; O2SAT 99
[2025-09-11 05:00] VITALS: BP 144/88; PULSE 59; RESP 18; TEMP 98; O2SAT 98
[2025-09-11] MEDS: LISINOPRIL 20 MG TAB PO ONE (07:45)
[2025-09-11] MEDS ORDERED: LISI20TA56 PO (07:45)
--- NOTE | 2025-09-11 07:45 | DVHDS2 ---
Discharge Summary Date of Admission Sep 09, 2025 at 21:32 Date of Discharge: Sep 11, 2025 Admitting Diagnosis Chest pain Labs/Diagnostic Data: Laboratory Results Test 09/09/25 20:30 09/09/25 17:14 09/09/25 16:53 Troponin I High Sensitivity 9 ng/L (</=34) White Blood Count 7.3 10^3/uL (4.4-10.8) Red Blood Count 4.53 10^6/uL (4.0-5.20) Hemoglobin 14.3 g/dL (12.2-16.2) Hematocrit 42.7 % (36.0-46.0) Mean Corpuscular Volume 94.2 fL (80.0-100.0) Mean Corpuscular Hemoglobin 31.5 pg (28.0-32.0) Mean Corpuscular Hemoglobin Concent 33.5 g/dL (32.0-36.0) Red Cell Distribution Width 13.0 % (11.8-14.3) Platelet Count 308 10^3/uL (140-450) Mean Platelet Volume 7.4 fL (6.9-10.8) Neutrophils (%) (Auto) 55.9 % (37.0-80.0) Lymphocytes (%) (Auto) 33.5 % (10.0-50.0) Monocytes (%) (Auto) 6.2 % (0.0-12.0) Eosinophils (%) (Auto) 3.8 % (0.0-7.0) Basophils (%) (Auto) 0.6 % (0.0-2.0) Neutrophils # (Auto) 4.1 10 ^3/uL (1.6-8.6) Lymphocytes # (Auto) 2.5 10 ^3/uL (0.4-5.4) Monocytes # (Auto) 0.5 10 ^3/uL (0-1.3) Eosinophils # (Auto) 0.3 10 ^3/uL (0-0.8) Basophils # (Auto) 0 10 ^3/uL (0-0.2) Nucleated Red Blood Cells 0.1 % Sodium Level 141 mmol/L (136-145) Potassium Level 4.0 mmol/L (3.5-5.1) Chloride Level 107 mmol/L (98-107) Carbon Dioxide Level 25 mmol/L (20-31) Anion Gap 9 (5-15) Blood Urea Nitrogen 14 mg/dL (9-23) Creatinine 0.96 mg/dL (0.550-1.02) Glomerular Filtration Rate Calc 65 mL/min (>90) BUN/Creatinine Ratio 14.6 (10.0-20.0) Serum Glucose 90 mg/dL (74-106) Calcium Level 9.7 mg/dL (8.7-10.4) Urine Color Light-yellow (Yellow) Urine Clarity Clear (Clear) Urine pH 6.5 (5.0-9.0) Urine Specific [place] 1.013 (1.001-1.035) Urine Protein Negative (Negative) Urine Ketones Negative (Negative) Urine Blood Negative /uL (Negative) Urine Nitrite Negative (Negative) Urine Bilirubin Negative (Negative) Urine Urobilinogen Normal mg/dL (Negative) Urine Leukocyte Esterase Negative /uL (Negative) Urine RBC None seen /hpf (0 - 4) Urine Microscopic WBC 1 /HPF (0-5) Urine Squamous Epithelial Cells Few /hpf (<5) Urine Bacteria None seen /hpf (None Seen) Urine Glucose Normal mg/dL (Normal) Other Laboratory Tests 09/09/25 17:14 Brief Hx & Hospital Course: History of Present Illness The patient is a 65-year-old female with past medical history of hypertension who presented to [facility] ED with complaint of chest pain. Patient reports that she has been experiencing substernal chest pain, constant, nonradiating, sharp in nature, associated with lightheadedness, getting worse that prompted this visit. Patient was seen and evaluated in the ED, laboratory data shows WBC 7.3, platelets 308, sodium 141, potassium 4.0, BUN 14, creatinine 0.96, glucose 90, calcium 9.7, troponin nine, blood pressure 180/119 trending down to 131/82, heart rate 66, temperature 98.0 F, O2 saturation 99% on room air. Chest x-ray show no evidence of acute cardiopulmonary process. On my assessment, patient denied chest pain at this moment, no headache, dizziness, diaphoresis, shortness of breaths, no diarrhea, nausea, vomiting, fever, no chills. Patient was admitted for further evaluation and medical management. Course of hospitalization: Further discussion was made with the patient regarding diagnostic findings. Troponins were negative x3. EKG negative for any acute ST changes. CT angiogram of the chest negative for pulmonary embolism. Noted questionable pulmonary hypertension based on diameter pulmonary artery. Patient's blood pressure was noted to be extremely elevated upon arrival to the emergency room as well as slight elevation this morning with systolic blood pressure 152. Patient has been chest pain free. She is requesting to be discharged home. She will be made an appointment with her net mobile developer, Dr. Moore in 1-2 weeks as well as follow up with her PCP in 1-2 weeks. Given her uncontrolled blood pressure with lisinopril 10, medication will be increased to 20 mg p.o. daily. Patient was agreeable with this discharge plan. Physical examination General: Alert and Oriented x3. No acute distress. Well-nourished. Eyes: EOMI. Anicteric. HENT: Moist mucous membranes. Lungs: Clear to auscultation bilaterally. No accessory muscle use. Cardiovascular: Regular rate and rhythm. No murmur. No JVD. Abdomen: Soft, non-tender and non-distended. No palpable masses. Extremities: No edema. Non-tender. Skin: No rashes or lesions. Warm. Neurologic: No focal neurological deficits. CN II-XII grossly intact, but not individually tested. Psychiatric: Cooperative. Appropriate mood and affect. Total time spent with patient discussing and formulating plan of care: 35 minutes. This medical document was created using an electronic medical record system with [employer] dictation system. Although this document has been carefully reviewed, there may still be some phonetic and typographical errors. These areas are purely typographical due to imperfections of the software programs, and do not reflect any compromise in the patient's medical care. Condition at Discharge: Fair Final Diagnosis/Problems List Hypertensive crisis -chest pain, rule out ACS -ruled out pulmonary embolism -primary hypertension -pulmonary hypertension Discharge Disposition: Home Discharge Instruct/Medications Diet: Cardiac 2g Na,low cholest Activity: No Restrictions, As Tolerated Follow Up/Referral: Follow up with net mobile developer, Dr. Moore in 1-2 weeks With PCP in 1-2 weeks Medications: Lisinopril 20 mg p.o. daily Scheduled Tamsulosin Hcl (Flomax), 1 CAP PO DAILY 36 Discharge Statement: "Patient was advised to return to the ER or call 911 if any headaches, dizziness, shortness of breath, chest pain, abdominal pain, bleeding, fevers, or worsening of medical condition. Patient was counseled about treatment plan, medications, possible side effects, patientverbalized understanding. All questions were answered to the best of my ability. This discharge took greater then 30 minutes in planning, reviewing documentation, counseling the patient, and discussing with other team members." ASSESSMENT ASSESSMENT Assessment Hypertensive crisis Date of Service: Sep 11, 2025 Billing Provider: DIOGO BENAVIDES NP Common Visit Codes: 47065-UMX/OBS DISCH DAY >30min DIOGO BENAVIDES NP Sep 11, 2025 07:45
[2025-09-11 08:06] VITALS: PULSE 66; RESP 18
--- NOTE | 2025-09-11 08:45 | DVHINCON2 ---
Date of service: Sep 11, 2025 History of Present Illness HPI Patient is a 65-year-old female presented with chest pain and lightheadedness. She was going to work when she started having chest discomfort and checked her blood pressure which was elevated. Then she decided to come to emergency room were her blood pressure was found to be 180/119. She was kept for its management. Chest pain was midsternal and pressure type. After control of blood pressure, chest pain resolved. Denies palpitations. Denies loss of consciousness. Does have baseline history of dyspnea on exertion which has not changed. For blood pressure, takes lisinopril 10 mg daily for many years. Does have baseline history of obstructive sleep apnea and is noncompliant with CPAP. Cardiology is involved for cardiac aspects of care. Patient is known to our practice from outside (last visit to our office was May 2024). Does have baseline history of noncompliance with followups/management. Home Meds Active Scripts Lisinopril (Lisinopril) 20 Mg Tab, 1 TAB PO DAILY for 30 Days, #30 TAB 5 Refills Prov:DIOGO BENAVIDES NP 09/11/25 Tamsulosin Hcl (Flomax) 0.4 Mg Cap, 1 CAP PO DAILY, #30 CAP 11 Refills Prov:LATISHA ZULETA MD 11/30/23 Past Medical History Others Past medical history includes hypertension, low back pain, sciatica, obstructive sleep apnea (noncompliant with CPAP) and history of hysterectomy/c holecystectomy. Does not smoke. Drinks 1 or 2 glass of wine every other week. No drug abuse No relevant family history Family History: No pertinent Hx Patient Family History: Patient reports no known family medical history. Smoker: No Hx (Negative) Alocohol: Occassional Drugs: None Lives with: With family Domestic Violence: Neg Review of Systems Constitutional: Weakness Ears, Nose, & Throat: No symptom reported Eyes: No symptom reported Pulmonary/Respiratory: No symptom reported Cardiovascular: Chest Pain Gastrointestinal: No symptom reported Genitourinary: No symptom reported All Other Systems Fourteen point review of system was performed. Relevant findings as per above and as per HPI. Otherwise negative. H&P Exam Vital Signs Vital Signs Date Time Temp Pulse Resp B/P (MAP) Pulse Ox O2 Delivery O2 Flow Rate FiO2 09/11/25 08:06 66 18 Room Air* 0 21 09/11/25 05:00 98.0 144/88 (106) 98 98.0 General Appeara: Well developed Head Exam: Normal inspection Neck Exam: Normal inspection Eye Exam: bilateral eye PERRL Nasal Exam: Normal inspection Pulmonary/Respiratory: Lungs clear Cardiovascular/Chest: Regular rate, Systolic murmur Peripheral Pulses: 2+ carotid (R), 2+ carotid (L), 2+ femoral (R), 2+ femoral (L), 2+ dorsalis pedis (R), 2+ dorsalis pedis (L), 2+ Radial (R), 2+ Radial (L) Abdominal Exam: Normal bowel sounds, Soft, No hepatospenomegaly Neuro/Mental St: Alert, Oriented Appearance: Appropriate appearance Eye contact/ Speech: Cooperative Labs/Xrays Labs Test 09/09/25 20:30 09/09/25 17:14 09/09/25 16:53 Range/Units Troponin I High Sensitivity 9 </=34 ng/L White Blood Count 7.3 4.4-10.8 10^3/uL Red Blood Count 4.53 4.0-5.20 10^6/uL Hemoglobin 14.3 12.2-16.2 g/dL Hematocrit 42.7 36.0-46.0 % Mean Corpuscular Volume 94.2 80.0-100.0 fL Mean Corpuscular Hemoglobin 31.5 28.0-32.0 pg Mean Corpuscular Hemoglobin Concent 33.5 32.0-36.0 g/dL Red Cell Distribution Width 13.0 11.8-14.3 % Platelet Count 308 140-450 10^3/uL Mean Platelet Volume 7.4 6.9-10.8 fL Neutrophils (%) (Auto) 55.9 37.0-80.0 % Lymphocytes (%) (Auto) 33.5 10.0-50.0 % Monocytes (%) (Auto) 6.2 0.0-12.0 % Eosinophils (%) (Auto) 3.8 0.0-7.0 % Basophils (%) (Auto) 0.6 0.0-2.0 % Neutrophils # (Auto) 4.1 1.6-8.6 10 ^3/uL Lymphocytes # (Auto) 2.5 0.4-5.4 10 ^3/uL Monocytes # (Auto) 0.5 0-1.3 10 ^3/uL Eosinophils # (Auto) 0.3 0-0.8 10 ^3/uL Basophils # (Auto) 0 0-0.2 10 ^3/uL Nucleated Red Blood Cells 0.1 % Sodium Level 141 136-145 mmol/L Potassium Level 4.0 3.5-5.1 mmol/L Chloride Level 107 98-107 mmol/L Carbon Dioxide Level 25 20-31 mmol/L Anion Gap 9 5-15 Blood Urea Nitrogen 14 9-23 mg/dL Creatinine 0.96 0.550-1.02 mg/dL Glomerular Filtration Rate Calc 65 >90 mL/min BUN/Creatinine Ratio 14.6 10.0-20.0 Serum Glucose 90 74-106 mg/dL Calcium Level 9.7 8.7-10.4 mg/dL Urine Color Light-yellow Yellow Urine Clarity Clear Clear Urine pH 6.5 5.0-9.0 Urine Specific [place] 1.013 1.001-1.035 Urine Protein Negative Negative Urine Ketones Negative Negative Urine Blood Negative Negative /uL Urine Nitrite Negative Negative Urine Bilirubin Negative Negative Urine Urobilinogen Normal Negative mg/dL Urine Leukocyte Esterase Negative Negative /uL Urine RBC None seen 0 - 4 /hpf Urine Microscopic WBC 1 0-5 /HPF Urine Squamous Epithelial Cells Few <5 /hpf Urine Bacteria None seen None Seen /hpf Urine Glucose Normal Normal mg/dL Assessment/Plan Plan Patient is a 65-year-old female presented with chest pain and lightheadedness. She was going to work when she started having chest discomfort and checked her blood pressure which was elevated. Then she decided to come to emergency room were her blood pressure was found to be 180/119. She was kept for its management. Chest pain was midsternal and pressure type. After control of blood pressure, chest pain resolved. Denies palpitations. Denies loss of consciousness. Does have baseline history of dyspnea on exertion which has not changed. For blood pressure, takes lisinopril 10 mg daily for many years. Does have baseline history of obstructive sleep apnea and is noncompliant with CPAP. Cardiology is involved for cardiac aspects of care. Patient is known to our practice from outside (last visit to our office was May 2024). Does have baseline history of noncompliance with followups/management. Not in acute distress. No JVD. Mucosa is pink and wet. No goiter. No carotid bruit. Not using accessory muscles of breathing. Lungs are clear to auscultation. Cardiac: Regular, no thrill/gallop. 2/6 systolic murmur in the apex is heard. Abdomen is soft. There is no gross mass. There is no hepatomegaly. Hepatojugular reflux is negative. No tenderness. Bowel sound is positive. There is no peripheral edema. Dorsalis pedis is 2+ bilateral. There is no gross lateralized neurologic deficit. Past medical history includes hypertension, low back pain, sciatica, obstructive sleep apnea (noncompliant with CPAP) and history of hysterectomy/cholecystectomy. Does not smoke. Drinks 1 or 2 glass of wine every other week. No drug abuse No relevant family history Creatinine: 0.96 Potassium: 4.0 Troponin (high sensitive): 9 - 9 Chest x-ray revealed: IMPRESSION: No radiographic evidence of acute cardiopulmonary process. CT angio of the lungs revealed: IMPRESSION: 1. Negative for an acute pulmonary embolism. 2. Pulmonary hypertension. EKG revealed sinus rhythm with no specific ST-T changes Telemetry reveals sinus rhythm Patient is a 65-year-old female who presented with chest discomfort and high blood pressure. Presentation was in favor of hypertensive emergency. Does have baseline history of hypertension and is noncompliant with medication and followups. Has not been compliant with diet. Noncompliance could have contributed to the clinical picture. Serial high sensitive troponin has been negative. EKG was nonrevealing. Acute coronary syndrome is not considered. Recognizing comorbidities, echocardiogram and ischemic workup can be considered to further risk stratify the patient (can be performed as outpatient). Chest pain Hypertensive emergency Obstructive sleep apnea Low back pain Sciatica History of noncompliance Cardiac suggestion for management: Manage on telemetry Follow-up electrolytes and kidney function tests and correct abnormalities Control blood pressure Echocardiogram/nuclear stress test (can be performed as outpatient) Lifestyle and risk factor modifications Patient was counseled to be compliant with medications/followups/management Further evaluation and management depends on the above and clinical course Thank you for consultation A total of 75 minutes was spent reviewing the patient record, examining the patient, making a diagnostic and therapeutic plan, discussing this plan with medical personnel, following up on diagnostic studies and following the patient for clinical stability excluding any and all procedures. At least 50% of this time was spent in direct, [id number] contact. Thank you for allowing me to participate in this patient's care. Further recommendations will depend on patient's clinical course. Please do not hesitate to contact me if you have any questions or concerns. This medical document was created using electronic medical record system with [employer] computerized dictation system. Although this document has been carefully reviewed, there may still be some phonetic and typographical errors. These areas are purely typographical due to the imperfection of the software programs, and do not reflect any compromise in the patient's medical care. Plan discussed with: Patient, Other (nurse) CECELIA MURILLO MD Sep 11, 2025 08:45
[2025-09-11 08:58] VITALS: BP 151/96; PULSE 66; RESP 16; TEMP 98.5; O2SAT 98
[2025-09-11 09:14] VITALS: BP 151/96; PULSE 66; RESP 16; TEMP 98.5; O2SAT 98
== END 2025-09-11 10:18 | disposition home or self-care (01) | DRG 305 ==
LOC: ER 15:59 → OVERFLOW 21:32 → ER 21:35 → OVERFLOW 21:35 → TELE-WESTW 09-10 18:38
PROVIDERS: ADMIT Nurse Practitioner Acute Care; ATTEND Nurse Practitioner Acute Care
DX: I16.1 Hypertensive emergency (principal); I24.9 Acute ischemic heart disease, unspecified; I27.20 Pulmonary hypertension, unspecified; I10 Essential (primary) hypertension; G47.33 Obstructive sleep apnea (adult) (pediatric); M54.40 Lumbago with sciatica, unspecified side; Z79.899 Other long term (current) drug therapy; Z82.49 Family history of ischemic heart disease and other diseases of the circulatory system; Z90.49 Acquired absence of other specified parts of digestive tract; Z90.710 Acquired absence of both cervix and uterus; Z91.199 Patient's noncompliance with other medical treatment and regimen due to unspecified reason
CPT/HCPCS: 36415; 71045; 71275; 80048; 81001; 84484; 85025; 93005; G0378